=== PATIENT | female | born 1945 | race Caucasian/White ===

== ENCOUNTER 2016-11-20 19:02 | Emergency (ER) | payer BC, MEDICARE ==
[2009-11-24 11:32] VITALS: BMI 22.9
[2016-11-20 21:03] LABS: BASOPHILS 0.3 % (0.0-2.0); EOSINOPHILS 2.6 % (0-7); HEMATOCRIT 36.4 % (36.0-48.0); HEMOGLOBIN 12.4 g/dL (12-16); IMMATURE GRANULOCYTES 0.2 % (0-5); LYMPHOCYTES 46.3 % (15-50); MCH 34.3 pg (26.0-34.0); MCHC 34.1 g/dL (31.0-37.0); MCV 100.6 fL (80.0-100.0); MEAN PLATELET VOLUME 10.2 fL (7.4-10.4); MONOCYTES 12.6 % (2-11); RBC 3.62 10x6/uL (4.00-5.40); WBC 5.7 10x3/uL (4.8-10.8)
[2016-11-20 21:09] LABS: PLATELET COUNT 110 10x3/uL (130-400)
[2016-11-20 21:20] LABS: ALBUMIN 3.5 g/dL (3.4-5.0); ALKALINE PHOSPHATASE 93 U/L (46-116); ALT (SGPT) 25 U/L (10-68); CALC OSMOLALITY 278 mosm/kg (275-300); CALCIUM 8.7 mg/dL (8.5-10.1); CARBON DIOXIDE 25.9 mmol/L (21.0-32.0); CHLORIDE - SERUM 103 mmol/L (98-107); CREATININE - SERUM 0.9 mg/dL (0.6-1.3); GLUCOSE 105 mg/dL (74-106); POTASSIUM - SERUM 3.2 mmol/L (3.5-5.1); PROTEIN - SERUM 6.6 g/dL (6.4-8.2); SODIUM 140 mmol/L (136-145); UREA NITROGEN 13 mg/dL (7-18); eGFR NON AFRICAN AMERICAN 66 mL/min (90-120)
[2016-11-20 21:30] LABS: AMYLASE - SERUM 31 U/L (25-115); CREATINE KINASE 99 UL (21-215); LIPASE 184 U/L (73-393); PRO BNP 15 pg/mL (0-125); TROPONIN-I < 0.017 ng/mL (0.000-0.060)
[2016-11-20 22:52] LABS: C-REACTIVE PROTEIN 2.6 mg/dL (0.0-0.9); THYROID STIMULATING HORMONE 0.71 uIU/mL (0.36-3.74)
== END 2016-11-20 23:33 | disposition home or self-care (01) ==
LOC: D.ER 19:02
PROVIDERS: Family Medicine
DX: R55 Syncope and collapse (principal); I49.3 Ventricular premature depolarization; R41.0 Disorientation, unspecified; R11.2 Nausea with vomiting, unspecified; M54.2 Cervicalgia